=== PATIENT | male | born 2000 | race Hispanic/Latino ===

== ENCOUNTER 2024-06-20 15:09 | Emergency (ER) | payer BC ==
[~2024-06-20] VITALS: Ht 172.7 cm; Wt 136.1 kg
[2024-06-20] MEDS ORDERED: CLIN-141 PO (16:31)
[2024-06-20] MEDS: CLINDAMYCIN 150 MG CAP PO ONE (16:41)
[2024-06-20] MEDS: KETOROLAC 60 MG VIAL (30MG/ML) IM ONE (16:41)
[2024-06-20 17:07] VITALS: BP 144/88; PULSE 88; RESP 17; O2SAT 99
== END 2024-06-20 17:12 | disposition home or self-care (01) ==
LOC: EDH 15:09
DX: K02.9 Dental caries, unspecified (principal); Z79.2 Long term (current) use of antibiotics
CPT/HCPCS: 99284; 96372; J1885